=== PATIENT | female | born 1960 | race Caucasian/White ===

== ENCOUNTER → 2017-10-01 | Outpatient (CLI) | payer OTHER ==
[2014-06-21 14:33] VITALS: BMI 28.5
[~2017-10-01] MED LIST: ACET-1966 PO; AMOX-362 PO; CEPH250C37 PO; CLAR-1 PO; DULO60CA7 PO; ESTR-26 PO; ESTR0.62 PO; ESTROGEN; FAMO20TA PO; FAMO20TA28 PO; FEX60 PO; FIBER SUPPLEMENT; GABA-547 PO; GABA-549 PO; HYDR-3074 PO; HYDR-385 PO; HYDR-4225 PO; HYDR-4309 PO; IBU800 PO; IBUP-1687 PO; IBUP600T22 PO; IBUP800T37 PO; LEVO-3 PO; LEVO50TA86 PO; LEVO75TA68 PO; LEVO75TA73 PO; LEVO88TA45 PO; LOR5/325 PO; MELO-207 PO; NAPR500T75 PO; OMEP-137 PO; OXYC-373 PO; OXYC-865 PO; OXYC-869 PO; PER PO; PHEN-460 PO; PREG75CA60 PO; PROG200C7 PO; PSYL0.5235 PO; THYROID MED
--- NOTE | 2017-10-01 15:17 | RADIOLOGY IMAGING REPORT ---
FACILITY: [facility] PATIENT NAME: TRISTON STODDARD : [id number] MR: [id number] V: [id number] EXAM DATE: [id number] ORDERING PHYSICIAN: VICKI TO TECHNOLOGIST: Parul Gray PROCEDURE:BILATERAL DIAGNOSTIC DIGITAL MAMMOGRAM WITH CAD ASSISTED INTERPRETATION & 3D TOMOSYNTHESIS COMPARISON:Prior mammograms 05/24/17, 11/26/16, 05/22/16, 05/14/15, 05/18/14. INDICATIONS:RIGHT BREAST LUMP FINDINGS: Moderately heterogeneous fibroglandular tissue is seen throughout the breasts. The parenchymal pattern has remained stable allowing for difference in mammographic technique & patient positioning. There is a lobular mass in the 1- 2 o'clock position of the right breast which has previously been shown to represent a cyst. This likely counts for patient's palpable findings. Other lobules in the left breast also have been previously shown to represent cysts. There is no evidence of malignant appearing mass, malignant appearing calcifications or other secondary sign of malignancy in either breast. DIAGNOSTIC CATEGORY 2--BENIGN FINDING. RECOMMENDATIONS: ROUTINE MAMMOGRAM AND CLINICAL EVALUATION. IMPRESSION: BIRADS 2: Benign finding Lobular densities in both breasts appear stable and have previously been demonstrated to represent cysts. Dictated by: Pinky Bridges M.D. on 10/01/2017 at 14:20 Transcribed by: NORI on 10/01/2017 at 15:16 Approved by: Pinky Bridges M.D. on 10/01/2017 at 15:16 [facility]
== END ==
LOC: MAMO 04:04
PROVIDERS: ATTEND Obstetrics & Gynecology
DX: N60.01 Solitary cyst of right breast (principal)
CPT/HCPCS: 77062; 77066

== ENCOUNTER → 2017-11-17 | Outpatient (CLI) | payer OTHER ==
[2014-06-21 14:33] VITALS: BMI 28.5
== END ==
LOC: LAB 14:43
PROVIDERS: ATTEND Anesthesiology
DX: Z01.812 Encounter for preprocedural laboratory examination (principal); E03.9 Hypothyroidism, unspecified; M22.41 Chondromalacia patellae, right knee; M23.51 Chronic instability of knee, right knee
CPT/HCPCS: 36415; 84443

== ENCOUNTER 2018-01-10 18:20 | Emergency (ER) | payer OTHER ==
[2014-06-21 14:33] VITALS: Wt 77.1 kg
[2018-01-10 18:26] VITALS: BP 133/76
[2018-01-10] MEDS ORDERED: MORPHINE 4 MG/ML SDV IVP ONE (19:05)
[2018-01-10] MEDS ORDERED: ONDANSETRON 4 MG/2 ML VIAL IVP ONE (19:05)
--- NOTE | 2018-01-10 19:55 | ER Report ---
History and Physical Time Seen By MD: 18:50 Hx. of Stated Complaint: Patient fell and injured right arm HPI/ROS CHIEF COMPLAINT: Right arm pain HISTORY OF PRESENT ILLNESS: This is a 57-year-old female presents to the emergency department for right arm pain. Patient states that about an hour and a half prior to arrival she fell down twisting backwards put her right arm out to break her fall and suddenly developed right wrist forearm and elbow pain which radiated up into her shoulder. No obvious deformities to the wrist or forearm or elbow. Patient is very sensitive to light touch. Denies hitting her head no loss of consciousness she states she did hit her right knee however she is ambulating well. No nausea, vomiting, diarrhea, aches, chills, headaches. REVIEW OF SYSTEMS: Constitutional: No fever, no chills. Eyes: No discharge. ENT: No sore throat. Cardiovascular: No chest pain, no palpitations. Respiratory: No cough, no shortness of breath. Gastrointestinal: No abdominal pain, no vomiting. Genitourinary: No hematuria. Musculoskeletal: Above. Skin: No rashes. Neurological: No headache. Allergies: Coded Allergies: latex (Verified Allergy, Mild, Irritation to site., 01/10/18) phentermine (Verified Adverse Reaction, Unknown, FELT WIERD, JUMPING SENSATION OF HEART, 01/10/18) Uncoded Allergies: TAPES (Allergy, Intermediate, RASH, 01/13/12) MUSCLE RELAXANTS (Allergy, Mild, RASH, 04/18/07) STEROIDS (Allergy, Mild, SWELLING AND FACIAL DISCOLORATION, 04/18/07) Home Meds Active Scripts Hydrocodone Bit/Acetaminophen (NORCO 5-325 TABLET) 1 Each Tablet, 1 EACH PO Q4- 6H Y for PAIN, #10 TAB Prov:HONG ALBERT [employer] 01/10/18 Ondansetron (ZOFRAN ODT) 4 Mg Tab.rapdis, 4 MG PO Q6H Y for NAUSEA/VOMITING, # 20 TAB.TYSON Prov:HONG ALBERT [employer]-BC 01/10/18 Levothyroxine Sodium (LEVOTHYROXINE SODIUM) 50 Mcg Tablet, 50 MCG PO QDAY, #90 TAB 4 Refills Prov:VITO BOYD MD 07/16/17 Reported Medications Duloxetine HCl (Duloxetine HCl) 60 Mg Capsule.dr, 1 CAP PO DAILY 04/16/17 Pregabalin (LYRICA) 75 Mg Capsule, 150 MG PO BID, CAPSULE 04/16/17 Estrogens, Conjugated 0.625 Mg Tab (PREMARIN 0.625 MG TAB) 0.625 Mg Tablet, 0.625 MG PO QDAY, TAB 05/13/15 Discontinued Scripts Hydrocodone Bit/Acetaminophen (HYDROCODON-ACETAMINOPHEN 5-325) 1 Each Tablet, 1 EACH PO Q4H, #20 TAB Prov:VITO BOYD MD 06/09/17 Past Medical/Surgical History Patient has a past medical and surgical history of GERD, urinary tract infections, hysterectomy, menopause, arthritis, back pain, upper dentures, wears glasses, right nodule on thyroid, thyroidectomy, depression, tubal ligation, ovarian cysts, hysterectomy, right knee scope, tonsillectomy. Reviewed Nurses Notes: Yes Hx Smoking: Yes Smoking Status: Former Smoker Exposure to Second Hand Smoke?: Yes Constitutional Vital Sign - Last 24 Hours 01/10/18 18:26 Temp 97.7 Pulse 81 Resp 16 B/P (MAP) 133/76 Pulse Ox 95 O2 Delivery Room Air Physical Exam General Appearance: The patient is alert, has no immediate need for airway protection and no signs of toxicity. Eyes: Pupils equal and round no pallor or injection. ENT, Mouth: Mucous membranes are moist. Respiratory: There are no retractions, lungs are clear to auscultation. Cardiovascular: Regular rate and rhythm, no murmurs, clicks or rubs. Gastrointestinal: Abdomen is soft and non tender, no masses, bowel sounds normal. Neurological: Alert and oriented 4. Moving all extremities. Following all commands. No focal neuro deficits. Skin: Warm and dry, no rashes. Musculoskeletal: Neck is supple non tender. Extremities generalized right wrist discomfort radiating up into the right forearm, generalized right elbow pain with light palpation. Small amount of swelling. No obvious deformity, no crepitus, CMS intact distal to the injury. Patient is able to give a thumbs up, abduct the fingers. DIFFERENTIAL DIAGNOSIS: After history and physical exam differential diagnosis was considered for contusion, wrist fracture, elbow fracture, forearm fracture, and dislocation. Medical Decision Making EKG/Imaging Imaging Location: [facility] [place] Patient: Odette Jones : 1960 Visit/Account:[id number] Date of Sevice: 01/10/2018 WRIST RIGHT MIN 3 VIEW, FOREARM RIGHT, ELBOW 3 VIEWS RIGHT Indication: Pain after fall Comparison: None Available Findings: There is a comminuted intra-articular fracture of the distal radius with mild lateral displacement present. Neutral alignment is noted. There is an avulsion fracture of the ulnar styloid. The forearm and elbow are intact. There is no focal soft tissue abnormality. IMPRESSION: 1. Comminuted intra-articular fracture of the distal radius with mild lateral displacement. In addition, the ulnar styloid fracture. 2. The remainder of the forearm and elbow are intact. Report Dictated By: Brayan Mcgill at 01/10/2018 8:11 PM Report E-Signed By: Brayan Mcgill at 01/10/2018 8:14 PM WSN:[id number] Location: [facility] [place] Patient: Odette Jones : 1960 Visit/Account:[id number] Date of Sevice: 01/10/2018 WRIST RIGHT MIN 3 VIEW, FOREARM RIGHT, ELBOW 3 VIEWS RIGHT Indication: Pain after fall Comparison: None Available Findings: There is a comminuted intra-articular fracture of the distal radius with mild lateral displacement present. Neutral alignment is noted. There is an avulsion fracture of the ulnar styloid. The forearm and elbow are intact. There is no focal soft tissue abnormality. IMPRESSION: 1. Comminuted intra-articular fracture of the distal radius with mild lateral displacement. In addition, the ulnar styloid fracture. 2. The remainder of the forearm and elbow are intact. Report Dictated By: Brayan Mcgill at 01/10/2018 8:11 PM Report E-Signed By: Brayan Mcgill at 01/10/2018 8:14 PM WSN:[id number] WRIST RIGHT MIN 3 VIEW, FOREARM RIGHT, ELBOW 3 VIEWS RIGHT Indication: Pain after fall Comparison: None Available Findings: There is a comminuted intra-articular fracture of the distal radius with mild lateral displacement present. Neutral alignment is noted. There is an avulsion fracture of the ulnar styloid. The forearm and elbow are intact. There is no focal soft tissue abnormality. IMPRESSION: 1. Comminuted intra-articular fracture of the distal radius with mild lateral displacement. In addition, the ulnar styloid fracture. 2. The remainder of the forearm and elbow are intact. Report Dictated By: Brayan Mcgill at 01/10/2018 8:11 PM Report E-Signed By: Brayan Mcgill at 01/10/2018 8:14 PM WSN:[id number] ED Course/Re-evaluation Clinical Indication for ER IV: IV Access ED Course The patient was submitted to a room. A history of physical or pain. Differential diagnoses were considered. An IV was started. 4 mg IV Zofran, 4 mg IV morphine and 50 g IV fentanyl. An x-ray of the right wrist forearm and elbow were obtained. Wrist x-ray showing a comminuted intra-articular fracture of the distal radius with a mild lateral displacement and a and over styloid fracture. Otherwise negative elbow and proximal forearm. CMS was intact pre-and post-splint application. Patient tolerated the splint very well. Patient was instructed to follow-up with [facility] in the next 1-2 days for reevaluation. Patient states she will follow-up with Dr. Celaya who she typically sees. The patient was given a take-home pack of hydrocodone and Zofran. A prescription was sent to the patient's pharmacy for hydrocodone and Zofran as well. Patient had no other questions or concerns at this time and was discharged home. Patient instructed to return to the ER for any other concerns or worsening symptoms. Procedure: Splint placement. A sugar tong splint was applied to the right forearm. After application of the splint I returned and re-examined the patient. The splint was adequately immobilizing the joint and distal to the splint the patient's circulation and sensation was intact. Patient was placed in a sling. Decision to Disposition Date: Jan 10, 2018 Decision to Disposition Time: 20:53 Depart Departure Latest Vital Signs Vital Signs Date Time Temp Pulse Resp B/P (MAP) Pulse Ox O2 Delivery O2 Flow Rate FiO2 01/10/18 18:26 97.7 81 16 133/76 95 Room Air Impression: Primary Impression: Right wrist fracture Condition: Improved Disposition: HOME OR SELF-CARE Referrals: VITO BOYD MD (PCP) NERISSA CELAYA MD [address] [facility] New Scripts Hydrocodone Bit/Acetaminophen (NORCO 5-325 TABLET) 1 Each Tablet 1 EACH PO Q4-6H Y for PAIN, #10 TAB Prov: HONG ALBERT- 01/10/18 Ondansetron (ZOFRAN ODT) 4 Mg Tab.rapdis 4 MG PO Q6H Y for NAUSEA/VOMITING, #20 TAB.TYSON Prov: HONG ALBERTP- 01/10/18 Patient Instructions: Wrist Fracture in Adults (ED) Additional Instructions: Drink plenty of water. Get plenty of rest. Take Ibuprofen or Tylenol as needed for pain. Take the [place] for severe pain, no driving or operating machinery while taking narcotics. Keep the arm elevated as much as possible. Follow up with [facility] in 2 days for reevaluation of the wrist. Return to the ED for any other concerns or worsening symptoms. Keep the sling on for comfort. Keep the splint on until you follow up with ortho. Problem Qualifiers Primary Impression: Right wrist fracture Encounter type: initial encounter Fracture type: closed Qualified Codes: S62.101A - Fracture of unspecified carpal bone, right wrist, initial encounter for closed fracture HONG ALBERT [employer]- Jan 10, 2018 19:55
--- NOTE | 2018-01-10 20:18 | RADIOLOGY IMAGING REPORT ---
FACILITY: [facility] PATIENT NAME: Odette Jones : 1960 MR: [id number] V: [id number] EXAM DATE: ORDERING PHYSICIAN: HONG ALBERT TECHNOLOGIST: Location: [facility] [place] Patient: Odette Jones : 1960 Visit/Account:[id number] Date of Sevice: 01/10/2018 WRIST RIGHT MIN 3 VIEW, FOREARM RIGHT, ELBOW 3 VIEWS RIGHT Indication: Pain after fall Comparison: None Available Findings: There is a comminuted intra-articular fracture of the distal radius with mild lateral displacement pr esent. Neutral alignment is noted. There is an avulsion fracture of the ulnar styloid. The forearm and elbow are intact. There is no focal soft tissue abnormality. IMPRESSION: 1. Comminuted intra-articular fracture of the distal radius with mild lateral displacement. In additi on, the ulnar styloid fracture. 2. The remainder of the forearm and elbow are intact. Report Dictated By: Brayan Mcgill at 01/10/2018 8:11 PM Report E-Signed By: Brayan Mcgill at 01/10/2018 8:14 PM WSN:[id number]
--- NOTE | 2018-01-10 20:19 | RADIOLOGY IMAGING REPORT ---
FACILITY: [facility] [place] PATIENT NAME: Odette Jones : 1960 MR: [id number] V: [id number] EXAM DATE: ORDERING PHYSICIAN: HONG ALBERT TECHNOLOGIST: Location: [facility] Patient: Odette Jones : 1960 Visit/Account:[id number] Date of Sevice: 01/10/2018 WRIST RIGHT MIN 3 VIEW, FOREARM RIGHT, ELBOW 3 VIEWS RIGHT Indication: Pain after fall Comparison: None Available Findings: There is a comminuted intra-articular fracture of the distal radius with mild lateral displacement pr esent. Neutral alignment is noted. There is an avulsion fracture of the ulnar styloid. The forearm and elbow are intact. There is no focal soft tissue abnormality. IMPRESSION: 1. Comminuted intra-articular fracture of the distal radius with mild lateral displacement. In additi on, the ulnar styloid fracture. 2. The remainder of the forearm and elbow are intact. Report Dictated By: Brayan Mcgill at 01/10/2018 8:11 PM Report E-Signed By: Brayan Mcgill at 01/10/2018 8:14 PM WSN:[id number]
--- NOTE | 2018-01-10 20:19 | RADIOLOGY IMAGING REPORT ---
FACILITY: [facility] [place] PATIENT NAME: Odette Jones : 1960 MR: [id number] V: [id number] EXAM DATE: ORDERING PHYSICIAN: HONG ALBERT TECHNOLOGIST: Location: [facility] [place] Patient: Odette Jones : 1960 Visit/Account:[id number] Date of Sevice: 01/10/2018 WRIST RIGHT MIN 3 VIEW, FOREARM RIGHT, ELBOW 3 VIEWS RIGHT Indication: Pain after fall Comparison: None Available Findings: There is a comminuted intra-articular fracture of the distal radius with mild lateral displacement pr esent. Neutral alignment is noted. There is an avulsion fracture of the ulnar styloid. The forearm and elbow are intact. There is no focal soft tissue abnormality. IMPRESSION: 1. Comminuted intra-articular fracture of the distal radius with mild lateral displacement. In additi on, the ulnar styloid fracture. 2. The remainder of the forearm and elbow are intact. Report Dictated By: Brayan Mcgill at 01/10/2018 8:11 PM Report E-Signed By: Brayan Mcgill at 01/10/2018 8:14 PM WSN:[id number]
[2018-01-10] MEDS ORDERED: fentaNYL CITR 100 MCG/2 ML AMP IVP ONE (20:30)
[2018-01-10] MEDS ORDERED: ONDA4TAB PO (20:39)
[2018-01-10] MEDS ORDERED: HYDR-4309 PO (20:39)
[2018-01-10] MEDS ORDERED: ONDANSETRON 4 MG ODT TH SL ONE (20:45)
[2018-01-10] MEDS ORDERED: ACET/HYDROC 5/325MG TH ER ONLY 2 TAB/BOTTLE PO ONE (20:45)
== END 2018-01-10 21:05 | disposition home or self-care (01) ==
LOC: ER 18:27
DX: S52.571A Other intraarticular fracture of lower end of right radius, initial encounter for closed fracture (principal); S52.614A Nondisplaced fracture of right ulna styloid process, initial encounter for closed fracture; W19.XXXA Unspecified fall, initial encounter
CPT/HCPCS: 29125; 73080; 73090; 73110; 96374; 96375; 99284; J2270; J2405; J3010; S0119

== ENCOUNTER → 2018-02-16 | Outpatient (CLI) | payer OTHER ==
[2014-06-21 14:33] VITALS: BMI 28.5
[~2018-02-16] MED LIST changes: +ONDA4TAB PO
--- NOTE | 2018-02-16 12:10 | RADIOLOGY IMAGING REPORT ---
FACILITY: [facility] PATIENT NAME: Odette Jones : 1960 MR: [id number] V: [id number] EXAM DATE: ORDERING PHYSICIAN: VICKI GUPTA TECHNOLOGIST: Location: [facility] [place] Patient: Odette Jones : 1960 Visit/Account:[id number] Date of Sevice: 02/16/2018 EXAMINATION: CT Abdomen W/O Contrast HISTORY: Abdominal wall bulge, epigastric pain. Additional history per the technologist, palpable bulge from xiphoid to umbilicus, felt by patient's physician. TECHNIQUE: Spiral scan was obtained through the abdomen without intravenous contrast. One of the [facility] dose optimization techniques was utilized in the performance of this exam: Automated exposure control; adjustment of the mA and/or kV according to the patient's size; or use of an iterative rec onstruction technique. Specific details can be referenced in the facility's radiology CT exam operat ional policy. COMPARISON STUDIES: 07/13/2014. FINDINGS: Please note that without intravenous contrast, sensitivity to detection of parenchymal disease is weller ited. Liver / biliary: Negative Pancreas: Negative Spleen: Negative Adrenal glands: Negative Kidneys / retroperitoneum: Negative. No stones or hydronephrosis. Bowel / peritoneum / mesenteries: Moderate amount of stool is present in the colon. There is no kaykay dence of bowel obstruction. No bowel wall thickening. No ascites. Vessels: Focal calcified plaque present in the distal abdominal aorta. No aneurysm identified. Musculoskeletal / Body wall: Minimal degenerative changes present in the lumbar spine. There is no periumbilical or anterior abdominal wall hernia to account for the palpable abnormality. No focal mass is present. Subcutaneous fat is unremarkable. Abdominal wall musculature is within n ormal limits. Lymph node assessment: Negative Lower chest: Negative IMPRESSION: 1. No abnormality seen in the anterior soft tissues or anterior abdominal wall to account for the pa tient's symptoms. There is no mass or evidence of hernia. 2. No acute intra-abdominal pathology. 3. Minimal calcified plaque in the distal aorta. Report Dictated By: Reshma Dave MD at 02/16/2018 11:55 AM Report E-Signed By: Reshma Dave MD at 02/16/2018 12:06 PM WSN:[email or web address]
== END ==
LOC: CT 01:40
PROVIDERS: ATTEND Surgery
DX: I25.10 Atherosclerotic heart disease of native coronary artery without angina pectoris (principal)
CPT/HCPCS: 74150

== ENCOUNTER 2018-03-23 10:13 | Outpatient (RCR) | payer OTHER ==
[2014-06-21 14:33] VITALS: BMI 28.5
--- NOTE | 2018-03-21 16:31 | RADIOLOGY IMAGING REPORT ---
FACILITY: [facility] PATIENT NAME: Odette Jones : 1960 MR: [id number] V: [id number] EXAM DATE: ORDERING PHYSICIAN: SALLY ROBLES TECHNOLOGIST: Location: [facility] Patient: Odette Jones : 1960 Visit/Account:[id number] Date of Sevice: 03/21/2018 EXAMINATION: MRI brain without IV contrast HISTORY: Multiple falls. Neuropathy. COMPARISON: Brain MRI from 05/22/2016. TECHNIQUE: Multi-planar, multi-sequence brain MRI was performed without IV contrast. FINDINGS: Brain volume: Normal. Sagittal midline structures: Sagittal midline structures are normally formed. Mild right cerebellar t onsillar ectopia of 4 mm is unchanged. Ventricles: Normal. Acute ischemic changes: No diffusion restriction present to suggest acute ischemia. Hemorrhage: No acute hemorrhage or hemosiderin staining. Masses/edema: None. Aaron-white: Negative. White matter: Normal. Vessels: Normal. Extra-axial: None. Calvarium/scalp: Negative. Skull base: Negative. Visualized sinuses/orbits: Mild mucosal thickening of the bilateral ethmoid air cells. There is mild nasal septal deviation to the right. Visualized upper neck: Negative. IMPRESSION: 1. No acute infarct, hemorrhage or intracranial mass lesion. 2. 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 Report Dictated By: Dalila John MD at 03/21/2018 4:25 PM Report E-Signed By: Dalila John MD at 03/21/2018 4:28 PM WSN:[email or web address]
--- NOTE | 2018-03-23 12:01 | RADIOLOGY IMAGING REPORT ---
FACILITY: [facility] PATIENT NAME: Odette Jones : 1960 MR: [id number] V: [id number] EXAM DATE: ORDERING PHYSICIAN: SALLY ROBLES TECHNOLOGIST: Location: [facility] [place] Patient: Odette Jnoes : 1960 Visit/Account:[id number] Date of Sevice: 03/23/2018 Exam type: CERVICAL SPINE W/OBL F/E History: Multiple falls Comparison: None. Findings: C1 C7 are seen in gross anatomic alignment. There is no evidence of acute fractures or subluxations is uncovertebral spurring producing mild foraminal narrowing on the left at C5-6 and moderate foramin al narrowing on the right at C4-5 and C5-6 no evidence of prevertebral soft tissue swelling. IMPRESSION: 1. Moderate spondylotic changes most prominent at C4-5 and C5-6 Report Dictated By: Pinky Bridges MD at 03/23/2018 11:33 AM Report E-Signed By: Pinky Bridges MD at 03/23/2018 11:56 AM WSN:[email or web address]
--- NOTE | 2018-03-23 12:02 | RADIOLOGY IMAGING REPORT ---
FACILITY: [facility] [place] PATIENT NAME: Odette Jones : 1960 MR: [id number] V: [id number] EXAM DATE: ORDERING PHYSICIAN: SALLY ROBLES TECHNOLOGIST: [facility] Patient: Odette Jones : 1960 Visit/Account:[id number] Date of Sevice: 03/23/2018 Exam type: LUMBAR SPINE COMP W/FLEX/EXT History: Multiple falls, lower back pain Comparison: None. Findings: There is no evidence of acute fractures or subluxations in the lumbar spine. Small anterior osteophy david project from the superior endplates of L3 and L4. There is a very gentle levoconvex curvature th e lumbar spine IMPRESSION: 1. . Gentle levoconvex curvature the lumbar spine No evidence of acute fractures or subluxations Report Dictated By: Pinky Bridges MD at 03/23/2018 11:56 AM Report E-Signed By: Pinky Bridges MD at 03/23/2018 11:58 AM WSN:[email or web address]
[2018-04-15] MEDS ORDERED: LEVO75TA73 PO (14:10)
== END 2018-04-27 ==
LOC: RAD 10:13
PROVIDERS: ATTEND Psychiatry & Neurology Neurology
DX: R29.6 Repeated falls (principal); G62.9 Polyneuropathy, unspecified; M54.41 Lumbago with sciatica, right side; G89.29 Other chronic pain; F32.9 Major depressive disorder, single episode, unspecified
CPT/HCPCS: 70551; 72052; 72114

== ENCOUNTER → 2018-04-15 | Outpatient (CLI) | payer OTHER ==
[2014-06-21 14:33] VITALS: BMI 28.5
== END ==
LOC: LAB 10:25
PROVIDERS: ATTEND Emergency Medicine
DX: E03.9 Hypothyroidism, unspecified (principal)
CPT/HCPCS: 36415; 84443

== ENCOUNTER → 2018-04-29 | Outpatient (CLI) | payer OTHER ==
[2014-06-21 14:33] VITALS: BMI 28.5
--- NOTE | 2018-04-29 15:08 | RADIOLOGY IMAGING REPORT ---
FACILITY: [facility] PATIENT NAME: Odette Jones : 1960 MR: [id number] V: [id number] EXAM DATE: ORDERING PHYSICIAN: VITO BOYD TECHNOLOGIST: Location: [facility] [place] Patient: Odette Jones : 1960 Visit/Account:[id number] Date of Sevice: 04/29/2018 Exam type: CHEST PA AND LAT History: nocturnal hypoxia Comparison: March 22, 2015. Findings: The lungs are free of acute effusions, infiltrates or edema. There is no evidence of a pneumothorax or pneumomediastinum. The trachea is midline. Cardiac silhouette is normal in size. Visualized bon es are unremarkable for age. IMPRESSION: 1. No acute cardiac pulmonary process is seen Report Dictated By: Pinky Bridges MD at 04/29/2018 3:03 PM Report E-Signed By: Pinky Bridges MD at 04/29/2018 3:04 PM WSN:[email or web address]
--- NOTE | 2018-04-29 15:10 | RADIOLOGY IMAGING REPORT ---
FACILITY: [facility] [place] PATIENT NAME: Odette Jones : 1960 MR: [id number] V: [id number] EXAM DATE: ORDERING PHYSICIAN: VITO BOYD TECHNOLOGIST: Location: [facility] [place] Patient: Odette Jones : 1960 Visit/Account:[id number] Date of Sevice: 04/29/2018 DEXA Scan Clinical history: Menopause. Comparison: None available. LUMBAR SPINE: The bone mineral density (BMD) measured from L1-L4 correlates with a Z-score -0.9 and a T-score of -1 .2 which is osteopenia as defined by the World Health Organization. The corresponding risk of fractu re in the lumbar spine is 2-3 times increased compared with a young adult reference population. HIP: Bone mineral density (BMD) measured in the Left total hip region correlates with a Z-score -1 and a T -score of -1.3 which is osteopenia as defined by the World Health Organization. The corresponding ri sk of fracture in the hip is 2-3 times increased compared with a young adult reference population. T score left femoral neck -1.9 Bone mineral density (BMD) measured in the Femoral Neck region measures 0.781 g/cm2. Impression: 1. Lumbar spine: Osteopenia. 2. Left Hip: Osteopenia. 3. Femoral Neck: Bone Mineral Density is 0.781 g/cm2 The next DEXA scan of this patient should include the following sites: L1-L4 and the left hip. FRAX? WHO Fracture Risk Assessment Tool link: <http://www.shef.ac.uk/FRAX/tool.jsp?[email or web address]> PLEASE NOTE: 1) The World Health Organization defines low BMD as follows: T-score Normal > -1 Osteopenia < -1 and > -2.5 Osteoporosis < -2.5 without fractures Established osteoporosis < -2.5 with fractures 2) In general, you may wish to consider: Diagnosis Treatment Follow-up DEXA Normal BMD Prevention 2-3 years Osteopenia Prevention/therapy 1-2 years Osteoporosis Therapy Yearly 3) Fracture risk estimated from the T-score is more accurate for vertebral fractures (often spontane ous) than for hip fractures. Report Dictated By: Pinky Bridges MD at 04/29/2018 3:04 PM Report E-Signed By: Pinky Bridges MD at 04/29/2018 3:05 PM POONAMN:[email or web address]
== END ==
LOC: RESP 03:52
PROVIDERS: ATTEND Emergency Medicine
DX: G47.34 Idiopathic sleep related nonobstructive alveolar hypoventilation (principal); M85.80 Other specified disorders of bone density and structure, unspecified site; J98.4 Other disorders of lung
CPT/HCPCS: 71046; 77080; 94060; 94726; 94729

== ENCOUNTER → 2018-05-10 | Outpatient (CLI) | payer OTHER ==
[2014-06-21 14:33] VITALS: BMI 28.5
[~2018-05-10] MED LIST changes: +BUPR-472 PO
== END ==
LOC: LAB 14:48
PROVIDERS: ATTEND Emergency Medicine
DX: M85.80 Other specified disorders of bone density and structure, unspecified site (principal)
CPT/HCPCS: 36415; 82306; 82310; 83970

== ENCOUNTER → 2018-05-11 | Outpatient (CLI) | payer OTHER ==
[2014-06-21 14:33] VITALS: BMI 28.5
[~2018-05-11] MED LIST changes: -HYDR-4309 PO; +HYDR-653 PO
== END ==
LOC: RESP 01:27
PROVIDERS: ATTEND Emergency Medicine
DX: G47.33 Obstructive sleep apnea (adult) (pediatric) (principal)

== ENCOUNTER → 2018-05-25 | Outpatient (CLI) | payer OTHER ==
[2014-06-21 14:33] VITALS: BMI 28.5
--- NOTE | 2018-05-25 16:34 | RADIOLOGY IMAGING REPORT ---
FACILITY: [facility] - [place] PATIENT NAME: TRISTON STODDARD : [id number] MR: [id number] V: [id number] EXAM DATE: ORDERING PHYSICIAN: VITO BOYD TECHNOLOGIST: Parul Gray PROCEDURE:BILATERAL DIGITAL SCREENING MAMMOGRAM WITH CAD ASSISTED INTERPRETATION & 3D TOMOSYNTHESIS COMPARISON:Prior mammograms 10/01/17, 05/24/17, 11/26/13, 05/22/16, 05/14/15. INDICATIONS:Screening FINDINGS: Moderately heterogeneous fibroglandular tissue is again seen throughout the breasts. Lobular densities are again seen in both breasts which appear to have decreased in size when compared to the prior study. The patient has previously been demonstrated to have bilateral breast cysts. There is no evidence of malignant appearing mass, malignant appearing calcifications or other secondary sign of malignancy in either breast. DIAGNOSTIC CATEGORY 2--BENIGN FINDING. RECOMMENDATIONS: ROUTINE MAMMOGRAM AND CLINICAL EVALUATION. IMPRESSION: BIRADS 2: Benign finding. No significant abnormality is seen. Dictated by: Pinky Bridges M.D. on 05/25/2018 at 15:47 Transcribed by: MAME on 05/25/2018 at 15:53 Approved by: Pinky Bridges M.D. on 05/25/2018 at 16:33 [facility]
== END ==
LOC: MAMO 00:33
PROVIDERS: ATTEND Emergency Medicine
DX: Z12.31 Encounter for screening mammogram for malignant neoplasm of breast (principal); Z80.3 Family history of malignant neoplasm of breast
CPT/HCPCS: 77063; 77067

== ENCOUNTER → 2018-05-26 | Outpatient (CLI) | payer OTHER ==
[2014-06-21 14:33] VITALS: BMI 28.5
== END ==
LOC: LAB 14:03
PROVIDERS: ATTEND Emergency Medicine
DX: E03.9 Hypothyroidism, unspecified (principal)
CPT/HCPCS: 36415; 84443

== ENCOUNTER → 2018-06-28 | Outpatient (CLI) | payer OTHER ==
[2014-06-21 14:33] VITALS: BMI 28.5
== END ==
LOC: LAB 14:09
PROVIDERS: ATTEND Emergency Medicine
DX: R20.8 Other disturbances of skin sensation (principal)
CPT/HCPCS: 36415; 82607

== ENCOUNTER → 2018-11-15 | Outpatient (CLI) | payer OTHER ==
[2014-06-21 14:33] VITALS: BMI 28.5
[~2018-11-15] MED LIST changes: +CYAN100058 PO; +PREG150C33 PO
== END ==
LOC: LAB 16:26
PROVIDERS: ATTEND Emergency Medicine
DX: E03.9 Hypothyroidism, unspecified (principal); E53.8 Deficiency of other specified B group vitamins
CPT/HCPCS: 36415; 82607; 84443